=== PATIENT | female | born 1980 | race Caucasian/White ===

== ENCOUNTER 2017-10-04 11:07 | Emergency (ER) | payer MEDICAID, OTHER ==
[~2017-10-04] VITALS: Ht 152.4 cm; Wt 56.4 kg
[~2017-10-04 11:07] MED LIST: NO HOME MEDS
[2017-10-04] MEDS ORDERED: HYD25 PO (11:18)
[2017-10-04] MEDS ORDERED: PRED10 PO (11:18)
[2017-10-04] MEDS ORDERED: DOXY100C PO (11:18)
[2017-10-04] MEDS ORDERED: OMEP20 PO (11:18)
[2017-10-04] MEDS ORDERED: HydrOXYzine HCL 25 MG TABLET PO ONE (12:45)
[2017-10-04 14:45] VITALS: BP 129/80
== END 2017-10-04 15:10 | disposition home or self-care (01) ==
LOC: EMS 11:09
DX: R21 Rash and other nonspecific skin eruption (principal); K21.9 Gastro-esophageal reflux disease without esophagitis; Z88.0 Allergy status to penicillin
CPT/HCPCS: 99283